=== PATIENT | female | born 1940 | race Caucasian/White ===

== ENCOUNTER 2020-09-12 00:21 | Emergency (ER) | payer OTHER ==
[~2020-09-12] VITALS: Ht 162.6 cm; Wt 55.0 kg
[2020-09-12] MEDS ORDERED: ATOR10TA9 PO (00:44)
[2020-09-12] MEDS ORDERED: INSU100V11 SC (00:44)
[2020-09-12] MEDS ORDERED: FOLI1TAB5 PO (00:44)
[2020-09-12] MEDS ORDERED: PIOG45TA63 PO (00:44)
[2020-09-12] MEDS ORDERED: LISI-170 PO (00:44)
[2020-09-12] MEDS ORDERED: MIRT45TA61 PO (00:44)
[2020-09-12] MEDS ORDERED: NPH,100V5 SC (00:44)
[2020-09-12] MEDS ORDERED: CHOL10003 PO (00:44)
[2020-09-12] MEDS ORDERED: SERT100T32 PO (00:44)
[2020-09-12] MEDS ORDERED: ASPI81TA45 PO (00:44)
--- NOTE | 2020-09-12 00:44 | NUR ---
pt bib today by daughter who was called by asphalt engineer (pt ) when pt became extra confused and weak this evening. daughter reports blood sugar dropped from 300s to 60s and pt daughter reports her bp dropped to 61/44 at home. pt appeared abnormal to family but now appears closer to baseline. pt resting on gurney, placed on spo2/bp monitoring. nad, rad at bs, wctm.
[2020-09-12 00:57] LABS: BASOPHILS % (AUTO) 1 % (0-1); EOSINOPHILS % (AUTO) 3 % (1-7); LYMPHOCYTES % (AUTO) 42 % (22-44); MEAN CORPUSCULAR HEMOGLOBIN 30.7 pg (27.0-34.8); MEAN CORPUSCULAR HGB CONC 33.1 g/dL (32.4-35.8); MEAN PLATELET VOLUME 8.3 fL (7.4-10.4); MONOCYTES % (AUTO) 10 % (2-9); NEUTROPHILS % (AUTO) 43 % (42-75); PLATELET COUNT 253 x10^3/uL (130-400); RED CELL DISTRIBUTION WIDTH 14.4 % (9.6-15.2)
[2020-09-12 00:58] LABS: MD NO
[2020-09-12] MEDS ORDERED: SODIUM CHLORIDE FLUSH 10ML SYR IVF ONE (01:00)
[2020-09-12 01:07] LABS: ANION GAP 2 mmol/L (5-15); CALCIUM 8.8 mg/dL (8.5-10.1); CHLORIDE 107 mmol/L (98-107); CREATININE 1.53 mg/dL (0.55-1.02)
[2020-09-12 01:08] LABS: ALANINE AMINOTRANSFERASE 19 U/L (12-78); ALBUMIN 3.2 g/dL (3.4-5.0)
[2020-09-12 01:09] LABS: ALKALINE PHOSPHATASE 87 U/L (45-117); BILIRUBIN,TOTAL 0.2 mg/dL (0.2-1.0); TOTAL PROTEIN 6.6 g/dL (6.4-8.2)
--- NOTE | 2020-09-12 01:32 | NUR ---
UA OBTAINED AND WALKED TO LAB, PT NAD, APPEARS COMFORTABLE, DENIES ADDITIONAL NEEDS, NO CHANGE IN CONDITION AT THIS TIME. WCTM.
[2020-09-12 01:45] LABS: MICROSCOPIC INDICATED
[2020-09-12 02:52] VITALS: BP 107/41
--- NOTE | 2020-09-12 02:55 | NUR ---
Patient given discharge instructions and they have confirmed that they understand the instructions. Patient ambulatory with [facility]. WHEELCHAIR USED TO EXIT ERP. PT NAD, STRENGTH HAS SIGNIFICANTLY RETURNED, DAUGHTER STATES SHES CLOSE TO BASELINE AT THIS TIME. NO PERSONAL BELONGINGS LEFT IN ROOM AT ID.
== END 2020-09-12 03:16 | disposition home or self-care (01) ==
LOC: ED 01:23
DX: E16.2 Hypoglycemia, unspecified (principal); R53.1 Weakness; R94.31 Abnormal electrocardiogram [ECG] [EKG]; R51.9 Headache, unspecified; I10 Essential (primary) hypertension; Z86.73 Personal history of transient ischemic attack (TIA), and cerebral infarction without residual deficits
CPT/HCPCS: 36415; 70450; 71045; 80053; 81001; 85025; 87086; 93005; 99285